=== PATIENT | male | born 2000 | race Caucasian/White ===

== ENCOUNTER 2025-09-10 18:40 | Emergency (ER) | payer SELFPAY ==
--- OUTSIDE RECORDS SUMMARY | 2024-09-20 10:15 | XMS_ITS ---
Author Organization [facility] Address [address] [place] [address] Care Team Providers Care Supervisor Assembling Name Role Phone Jeanne Mukherjee Primary Care Provider [phone] REASON FOR VISIT rash Encounters Encounter Location Date Provider Diagnosis [address] [place] [address] 09/20/2024 Jeanne Mukherjee Plan Of Treatment No Information Progress Notes * NASEEM HEWITT DDOB:2000 (25 yo M)Acc No.[id number]:09/20/2024 Progress Notes Patient: Jordon GAINES NASEEM Yin :?Jeanne Hsieh CNPDOB:2000???Age:24 Y ???Sex:MaleDate:4Phone:[phone]:[address] [facility] [address], [place] Subjective: * Chief Complaints: * R michoacano Billing Information: * Procedure Codes: * Electronic signature of STEPHAN Hay on 09/10/2025 at 08:06 PM ESTSign off status: Pending * Provider: Jason Hsieh CNP Date: 11/20/2023 Generated for Printing/Faxing/eTransmitting on:?09/10/2025 08:06 PM EST
--- OUTSIDE RECORDS SUMMARY | 2025-04-01 06:15 | XMS_ITS ---
Author Organization [facility] Address [address] [place] [address] Care Team Providers Care General Ophthalmologist Name Role Phone Jeanne Mukherjee Primary Care Provider Mario Alberto Velasquez [phone] REASON FOR VISIT EXT Encounters Encounter Location Date Provider Diagnosis [place] [address] [address] 04/01/2025 Mario Alberto Velasquez Plan Of Treatment No Information Progress Notes * NASEEM HEWITT DDOB:2000 (25 yo M)Acc No.[id number]:04/01/2025 Patient:?NASEEM HEWITT :?Mario Alberto Velasquez DDSDOB:2000???Age:25 Y ???Sex:MaleDate:04/01/2025Phone:[phone]:[address] [place] [address] [address], [place], [place]Mqy:Jeanne Mukherjee Subjective: * Chief Complaints: * E XT Billing Information: * Procedure Codes: * Electronic signature of Mario Alberto Velasquez DDS on 09/10/2025 at 08:06 PM ESTSign off status: Pending * Provider: Adam Velasquez DDS Date: 0 04/01/2025 Generated for Printing/Faxing/eTransmitting on:?09/10/2025 08:06 PM EST
--- OUTSIDE RECORDS SUMMARY | 2025-08-09 06:30 | XMS_ITS ---
Author Organization [facility] Address [address] [place] [address] Care Team Providers Care Merchandising Execution Manager Name Role Phone Jeanne Mukherjee Primary Care Provider Mario Alberto Velasquez [phone] REASON FOR VISIT EXT Encounters Encounter Location Date Provider Diagnosis [address] [address] 08/09/2025 Mario Alberto Velasquez Plan Of Treatment No Information Progress Notes * NASEEM HEWITT DDOB:2000 (25 yo M)Acc No.[id number]:08/09/2025 Patient:?NASEEM HEWITT :?Mario Alberto Velasquez DDSDOB:2000???Age:25 Y ???Sex:MaleDate:08/09/2025Phone:[phone]:[address] [place] [address] [address], [place], [place]Bwo:Jeanne Mukherjee Subjective: * Chief Complaints: * E XT * Electronic signature of Mario Alberto Velasquez DDS on 09/10/2025 at 08:06 PM ESTSign off status: Pending * Provider: Adam Velasquez DDS Date: Generated for Printing/Faxing/eTransmitting on:?09/10/2025 08:06 PM EST
--- OUTSIDE RECORDS SUMMARY | 2025-08-12 06:00 | XMS_ITS ---
Author Organization [facility] Address [address] [place] [address] Care Team Providers Care Cinder Block Maker Name Role Phone Jeanne Mukherjee Primary Care Provider [phone] Mario Alberto Velasquez [phone] REASON FOR VISIT EXT Encounters Encounter Location Date Provider Diagnosis [place] [address] [address] 08/12/2025 Mario Alberto Velasquez Plan Of Treatment No Information Progress Notes * NASEEM HEWITT DDOB:2000 (25 yo M)Acc No.[id number]:08/12/2025 Patient:?NASEEM HEWITT :?Mario Alberto Velasquez DDSDOB:2000???Age:25 Y ???Sex:MaleDate:08/12/2025Phone:[phone]:[address] [place] [address] [address], [place], [place]Nfi:Jeanne Mukherjee Subjective: * Chief Complaints: * E XT * Electronic signature of Mario Alberto Velasquez DDS on 09/10/2025 at 08:06 PM ESTSign off status: Pending * Provider: Adam Velasquez DDS Date: Generated for Printing/Faxing/eTransmitting on:?09/10/2025 08:06 PM EST
[2025-09-10 18:47] VITALS: BP 122/83; PULSE 70; TEMP 37.2; O2SAT 97; BMI 23.0
--- NOTE | 2025-09-10 19:33 | ED_ITS ---
HPI - Abdominal Pain General Chief Complaint: Abdominal Pain Stated Complaint: Puking blood, abdominal pain Time Seen by Provider: 09/10/25 19:26 Source: patient and family Mode of arrival: walk-in Limitations: no limitations History of Present Illness HPI narrative: patient states he has been vomiting blood for 4 days. States he was admitted to [facility]. No hematemesis this AM. Describes EGD performed at [facility] this afternoon. States he was waiting for the results and was informed the Physician who performed the procedure had left. He became upset and signed out AMA about an hour ago and drove here. Still has abdominal pain. No longer vomiting. Denies tarry stools because he has not had a BM. Does have a history of GERD that he does not treat. smokes cigarettes daily. Denies alcohol use Related Data Allergies Allergy/AdvReac Type Severity Reaction Status Date / Time No Known Drug Allergies Allergy Verified 09/10/25 18:54 Review of Systems ROS Status of ROS 10 or more systems reviewed and unremark able except as noted in history and below PFSH PFSH Social History Little interest or pleasure in doing things: not at all Feeling down, depressed, or hopeless: not at all Exam Constitutional Vital Signs, click to edit/add: Last Vital Signs Temp 99 F 09/10/25 18:47 Pulse 70 09/10/25 18:47 Resp 20 09/10/25 18:47 BP 122/83 09/10/25 18:47 Pulse Ox 97 09/10/25 18:47 O2 Del Method Room Air 09/10/25 18:47 Common normals: no apparent distress, average body habitus, oriented x3, no limitations, healthy appearing, alert and well nourished [facility] Common normals: normocephalic and head/scalp atraumatic Eye Common normals: EOMs intact bilaterally and conjunctivae normal Respiratory Common normals: normal respiratory effort, no retractions, no use of accessory muscles and clear to auscultation bilaterally Cardio Common normals: regular rate, regular rhythm, S1 normal heart sound and S2 nor mal heart sound GI Common normals: Normal to inspection, nondistended, normoactive bowel sounds present Other: mild mid abdomen tenderness. no guarding Extremity Common normals: normal to inspection and full ROM Neuro Common normals: oriented x3, CN's II-XII intact bilaterally, moves all extremities and no focal motor deficits Psych Appearance: grossly normal Course Vital Signs Vital signs: Vital Signs Temperature 99 F 09/10/25 18:47 Pulse Rate 70 09/10/25 18:47 Respiratory Rate 20 09/10/25 18:47 Blood Pressure 122/83 09/10/25 18:47 Pulse Oximetry 97 09/10/25 18:47 Oxygen Delivery Method Room Air 09/10/25 18:47 Temperature 99 F 09/10/25 18:47 Pulse Rate 70 09/10/25 18:47 Respiratory Rate 20 09/10/25 18:47 Blood Pressure 122/83 09/10/25 18:47 Pulse Oximetry 97 09/10/25 18:47 Oxygen Delivery Method Room Air 09/10/25 18:47 MDM - Abdominal Pain MDM Narrative Medical decision making narrative: patient has been at [facility] the [facility] for hematemesis. States last episode of hematemesis was this AM. He had EGD performed at [facility] this afternoon. States he was not told the results of the procedure. He grew inpatient waiting for the results and singed out AMA one hour ago and drove here asking that we obtain the results. He still has no further vomiting. complains of abdominal pain but does not require any pain medication and antonio has mild tenderness on exam. No guarding and resting comfortably. We did call [facility] for his records several times and there has been a delay in receiving them. The patient is now asking to be discharged. He no longer wants to wait Discharge Plan Discharge Chief Complaint: Abdominal Pain Clinical Impression: Abdominal pain Patient Disposition: Home, Self-Care Print Language: Somali Instructions: Abdominal Pain (ED) Additional Instructions: follow up with your doctor tomorrow for recheck Referrals: Physician,Non-Staff, MD [Primary Care Provider] - 1 week
--- OUTSIDE RECORDS SUMMARY | 2025-09-10 20:06 | XMS_ITS | Patient Health Record ---
Author Organization [facility] Address [address] [place] [address] Care Team Providers Care Administrative Support Assistant Name Role Phone Jeanne Mukherjee Primary Care Provider Dr. Keith Damon Unavailable [phone] Mario Alberto Velasquez Unavailable [phone] Allergies No Known Allergies Reason For Referral No Information Medications Medication SIG (Take, Route, Frequency, Duration) Notes Start Date End Date Status Ibuprofen 800 MG Tablet 1 tablet with fo od or milk as needed Orally Three times a day 5ActiveAtomoxetine HCl 10 MG Capsule1 capsule daily for 1 week then twice daily Orally Twice a day; Duration: 30 day(s)03/23/2023Unknown Social History Tobacco Use: Social History Observation Description Date Details (start date - stop date) Current Smoker NA - NA Social History GeneralSocial InfoQuestionAnswerNotesTransition of Care:ER/UC/hospital since last office visit?Yes, report on [facility] ER to get stitches removed from elbow. Substance abuse/mental health issues of patient/familyPatient -Caffeine Use, OtherMarijuana useAbility to understand healthcare/treatmentPatient:FairTobacco Screen:Are you a:current smoker? How often do you smoke cigarettes?every day? How many cigarettes a day do you smoke?11-20Social/Support Concerns:Patient:No Alcohol Screening:Did you have a drink containing alcohol in the past year?No Hlyzcp2UhuasdkkcueersCaxdlgpqIqatqbqpp affecting healthPoor/Risky Behaviors:Oral Health-, Second Hand Smoke-Communication Barrier:Language Barrier?:No Problems Problem Type SNOMED Code ICD Code Onset Dates Problem Status W/U Status Risk Notes Problem Attention deficit hy peractivity disorder (498962541) Attention deficit hyperactivity disorder (ADHD), combined type (F90.2) Activeconfirmed Encounters Encounter Location Date Provider Diagnosis [facility] [address] [place] [address] 12/21/2024 Agnish Gholekar S [address] [facility] [place] [address]/[facility] [place] [address]/[facility] GholekarEncounter for dental examination and cleaning with abnormal findings Z01.21 ; Disturbances in tootheruption K00.6 ; Other dental procedure status Z98.818 ; Cracked tooth K03.81 and Complete loss of teeth, unspecified cause, class I K08.101[facility] [address]y [address] [facility] [place] [address]/[facility] GholekarCracked tooth K03.81[facility] Jaxeccc028 [facility] [place] [address]/[facility] GholekarCracked tooth K03.81[facility] Pijwnet018 [facility] [place] [address] 04/08/2025Joseph RizkFHS Ofxpogj[address] [place] [address] 07/12/2025Joseph RizkCracked tooth K03.81 ; Other dental procedure status Z98.818 and Encounter for dental examination and cleaning with abnormal findings Z01.21 Assessments Encounter Date Diagnosis (ICD Code) Assessment Notes Treatment Notes Treatment Clinical Notes Section Notes 04/01/2025 Cracked tooth (ICD-10 - K03.81) 5Cracked tooth (ICD-10 - K03.81)5Cracked tooth (ICD-10 - K03.81)12/18/2024Encounter for dental examination and cleaning with abnormal findings (ICD-10 - Z01.21)07/12/2025Other dental procedure status (ICD-10 - Z98.818)12/18/2024Disturbances in tooth eruption (ICD-10 - K00.6)12/18/2024Other dental procedure status (ICD-10 - Z98.818)07/12/2025Encounter for dental examination and cleaning with abnormal findings (ICD-10 - Z01.21)12/18/2024 Cracked tooth (ICD-10 - K03.81)12/18/2024omplete loss of teeth, unspecified cause, class I (ICD-10 - K08.101) Plan Of Treatment No Information Insurance Providers Payer Name Payer Address Payer Phone Subscriber Number Group Number Insured Name Patient Relationship to Insured Coverage Start Date Coverage End Date [employer] [place] Medicaid [address] [place] [address] [id number] MARCELINA BALJITJENSENelf - patient is the [id number] [facility] [address] [place] [id number], TYLJENSENelf - patient is the [id number] MedicaidPO BOX [facility] [place] [id number], NASEEM Self - patient is the [id number] [address] [place] [id number], TYLERSelf - patient is the [id number] [place] MedicaidPO [address] [place] [id number], TYLERSelf - patient is the [id number] [facility] [address] [place] [address] [id number], TYLERSelf - patient is the insured zDental [employer] [place] MedicaidPO [address] [place] [id number], TYLERSelf - patient is the [id number]/ental Wrap [facility] [address] [place] [address] [id number], TYLERSelf - patient is the insured /Dental [employer] [place] MedicaidPO [address] [place] [id number], TYLERSelf - patient is the insured / Medical (General) History Medical History History ICD Code ADHD
== END 2025-09-10 22:20 | disposition left against medical advice (07) ==
PROVIDERS: Emergency Provider Internal Medicine
DX: R10.9 Unspecified abdominal pain (principal); K21.9 Gastro-esophageal reflux disease without esophagitis; F17.210 Nicotine dependence, cigarettes, uncomplicated; Z98.890 Other specified postprocedural states
CPT/HCPCS: 99281